=== PATIENT | female | born 1990 | race Caucasian/White ===

== ENCOUNTER 2018-05-12 08:57 | Emergency (ER) | payer OTHER ==
[2018-05-12 10:50] LABS: URINE BLOOD (Dip) POC Negative (NEGATIVE); URINE GLUCOSE (Dip) POC Negative (NEGATIVE); URINE KETONES (Dip) POC Negative (NEGATIVE); URINE LEUKOCYTE EST (Dip) POC Negative (NEGATIVE); URINE NITRITE (Dip) POC Negative (NEGATIVE); URINE TOTAL PROTEIN POC Negative (NEGATIVE)
[2018-05-12 10:50] LABS: URINE PH (Dip) POC 7.5 (5.0-8.5)
[2018-05-12] MEDS: IBUPROFEN 800 MG TAB PO (10:50)
== END 2018-05-12 13:42 | disposition home or self-care (01) ==
LOC: FTE 13:42
DX: M54.9 Dorsalgia, unspecified (principal)
CPT/HCPCS: 72040; 72072; 72100; 72170; 81003; 81025; 99284-25